=== PATIENT | male | born 1960 | race Caucasian/White ===

== ENCOUNTER 2021-03-07 11:36 | Inpatient (IN) | payer BC, SELFPAY ==
[~2021-03-07] VITALS: Ht 167.6 cm; Wt 103.0 kg
[2021-03-07 11:38] VITALS: BP_SYST 145
--- NOTE | 2021-03-07 11:38 | NUR ---
PT TO BED 5 FOR EVALUATION.
--- NOTE | 2021-03-07 11:40 | NUR ---
PT AAO AND AMBULATORY REPORTING WORSENING LOWER LEFT LEG PAIN X 3 DAYS. PT WAS SEEN AT URGENT CARE TODAY AND WAS SENT HERE TO R/O DVT. PT CURRENTLY RATES PAIN 3/10 ON PAIN SCALE. PT DENIES ANY MEDICAL HISTORY.
--- NOTE | 2021-03-07 11:48 | NUR ---
DR. HAQ AT BEDSIDE TO ASSESS.
--- NOTE | 2021-03-07 11:50 | NUR ---
REPORT GIVEN TO YOCASTA FISHMAN WHO WILL ASSUME CARE.
--- NOTE | 2021-03-07 11:52 | NUR ---
RECEIVED, CALM, DENIES FEVER/CHILLS, RESP UNLABORED, C/O LT CALF PAIN
--- NOTE | 2021-03-07 12:45 | NUR ---
ULTRASOUND IN PROGRESS, PT CALM, ALERT, NO DISTRESS
--- NOTE | 2021-03-07 13:07 | NUR ---
ULTRASOUND LT LEG COMPLETED
--- NOTE | 2021-03-07 13:13 | NUR ---
Per Dr. Wood, page the insurance claims representative regarding pt status. [facility]
--- NOTE | 2021-03-07 13:50 | NUR ---
PT RESTING QUIETLY IN NO DISTRESS AWAITING DISPOSITION.
--- NOTE | 2021-03-07 14:30 | NUR ---
Spoke to [employer] Representative, GAVE VERBAL AUTH for admission. Requested fax of facesheet and clinicals. fax: [phone]
[2021-03-07] MEDS ORDERED: ENOXAPARIN SODIUM 100 MG/ML SYRINGE SUBCUT ONE (14:45)
[2021-03-07] MEDS ORDERED: ZOLPIDEM TARTRATE 5 MG TABLET PO PRN (16:00)
[2021-03-07] MEDS ORDERED: LORazepam 2 MG/ML VIAL IVP PRN (16:00)
[2021-03-07] MEDS ORDERED: ONDANSETRON HCL 4 MG/2 ML VIAL IVP PRN (16:00)
[2021-03-07] MEDS ORDERED: MUPIROCIN 2% TOPICAL OINTMENT 22 GM NS PRN (16:00)
[2021-03-07] MEDS ORDERED: ACETAMINOPHEN 325 MG TABLET PO PRN (16:00)
[2021-03-07] MEDS ORDERED: DOCUSATE SODIUM 100 MG CAPSULE PO PRN (16:00)
[2021-03-07] MEDS ORDERED: MAGNESIUM SULFATE 50 ML IV PRN (16:00)
[2021-03-07] MEDS ORDERED: POTASSIUM CHLORIDE 20 MEQ TAB.PRT.SR PO PRN (16:00)
[2021-03-07] MEDS ORDERED: MORPHINE 2 MG/ML INJ. SYRINGE IVP PRN (16:00)
--- NOTE | 2021-03-07 16:58 | NUR ---
COVID SWAB SENT, PT AWARE OF ADMISSION
[2021-03-07] MEDS: NACL 0.9% 1,000 ML IV SCH (17:10)
--- NOTE | 2021-03-07 17:49 | NUR ---
MEAL PROVIDED, TOLERATING PO WELL
--- NOTE | 2021-03-07 18:20 | NUR ---
ADMISSION NOTE Received patient from ER via juan, received report from SRAVANTHI RUST. Patient admitted with diagnosis of DVT LEFT LEG. Patient oriented to hospital routine, call light, toileting and safety-patient verbalized understanding.
--- NOTE | 2021-03-07 18:21 | NUR ---
Patient will be admitted to care of [facility]. Admitted to M/S unit. Will go to room 130. Belongings list completed. Complete and up to date summary report printed. SBAR report to be given at bedside with opportunity for questions.
[2021-03-07 18:30] VITALS: BP_SYST 139
[2021-03-07 19:30] VITALS: BP_SYST 128
--- NOTE | 2021-03-07 19:30 | NUR ---
OPENING NOTE PATIENT IS AWAKE ALERT ORIENTED X4 BREATHING ROOM AIR NO SIGNS OF PAIN OR DISTRESS. IV LINE PATENT AND INTACT LEFT FOREARM. BED IS LOW AND CALL LIGHTS IN REACH.
[2021-03-07] MEDS: ENOXAPARIN SODIUM 100 MG/ML SYRINGE SUBCUT SCH (22:32)
--- NOTE | 2021-03-08 | NUR ---
PATIENT IS ASLEEP NO SIGNS OF PAIN OR DISTRESS. BED IS LOW AND CALL LIGHTS IN REACH.
[2021-03-08 01:17] VITALS: BP_SYST 113
[2021-03-08] MEDS: NACL 0.9% 1,000 ML IV SCH (02:43)
--- NOTE | 2021-03-08 04:00 | NUR ---
PATIENT IS ASLEEP NO SIGNS OF PAIN OR DISTRESS. BED IS LOW AND CALL LIGHTS IN REACH.
[2021-03-08 06:22] LABS: BASOPHILS % (AUTO) 0.7 % (0.0-2.0); EOSINOPHILS # (AUTO) 0.1 K/uL (0.0-0.4); EOSINOPHILS % (AUTO) 1.8 % (0.0-4.0); HEMATOCRIT 47.6 % (36-54); HEMOGLOBIN 16.2 g/dL (14.0-18.0); LYMPHOCYTES # (AUTO) 1.4 K/uL (1.0-5.5); LYMPHOCYTES % (AUTO) 25.9 % (20.5-51.5); MEAN CORPUSCULAR HEMOGLOBIN 30 pg (27-31); MEAN CORPUSCULAR HGB CONC 34 % (32-36); MEAN CORPUSCULAR VOLUME 88 fL (79.0-98.0); MONOCYTES # (AUTO) 0.4 K/uL (0.0-1.0); MONOCYTES % (AUTO) 7.8 % (1.7-9.3); NEUTROPHILS # (AUTO) 3.5 K/uL (1.8-7.7); NEUTROPHILS % (AUTO) 63.8 % (40.0-70.0); PLATELET COUNT (AUTO) 147 K/uL (130-430); WHITE BLOOD COUNT (AUTO) 5.5 K/uL (4.8-10.8)
[2021-03-08 06:35] LABS: ALBUMIN 2.9 g/dL (3.4-4.8); CALCIUM 8.2 mg/dL (8.4-11.0); CREATININE 0.62 mg/dL (0.55-1.30); POTASSIUM 3.8 mmol/L (3.5-5.1); TOTAL BILIRUBIN 0.6 mg/dL (0.0-1.0)
--- NOTE | 2021-03-08 06:52 | NUR ---
CLOSING NOTE PATIENT IS ASLEEP COMFORTABLE NO SIGNS OF PAIN OR DISTRESS IN MY SHIFT. BREATHING ROOM AIR. IV SITE PATENT AND INTACT ON RFA. BED IS LOW AND CALL LIGHTS IN REACH. WILL ENDORSE TO NEXT SHIFT PATIENT IS HERE FOR OBSERVATION CHART FOR OBSERVATION IV FLUIDS.
[2021-03-08 08:00] VITALS: BP_SYST 124
[2021-03-08] MEDS ORDERED: APIX5TAB PO (08:42)
[2021-03-08] MEDS: ENOXAPARIN SODIUM 100 MG/ML SYRINGE SUBCUT SCH (09:46)
--- NOTE | 2021-03-08 11:05 | NUR ---
alert, oriented, appropriate. c/o left calf, " some discomfort, but no need for pain meds right now" . Doppler revealed DVT+ on LLE. On Lovenox 100mg sq, given
[2021-03-08 12:20] VITALS: BP_SYST 124
--- NOTE | 2021-03-08 13:27 | NUR ---
LATE ENTRY: ATTENDING MD DR DORAN WAS CALLED, RE: MEDICATION'S CO PAY FOR ELIQUIS WAS EXPENSIVE, ASKING FOR SUBSTITUTE FOR BLOOD THINNER AND LETTER TO EXCUSE PT TO WORK. LEFT A VOICE MESSAGE.
[2021-03-08 14:43] VITALS: BP_SYST 118
== END 2021-03-08 15:45 | disposition home or self-care (01) | DRG 301 ==
LOC: SED 11:36 → SMU 15:03
PROVIDERS: ADMIT General Practice; ATTEND General Practice
DX: I82.402 Acute embolism and thrombosis of unspecified deep veins of left lower extremity (principal); E66.9 Obesity, unspecified; Z20.822 Contact with and (suspected) exposure to COVID-19; Z79.01 Long term (current) use of anticoagulants; Z79.899 Other long term (current) drug therapy; Z68.36 Body mass index [BMI] 36.0-36.9, adult
CPT/HCPCS: 36415; 80053; 83036; 83735; 85025; 93971; 96372; 99285; J1650